=== PATIENT | female | born 1970 | race Caucasian/White ===

== ENCOUNTER 2023-05-30 04:17 | Day surgery (SDC) | payer BC, SELFPAY ==
[2023-05-20 13:44] VITALS: BMI 37.8
[2023-05-30 10:17] VITALS: BP 132/93; PULSE 98; RESP 16; TEMP 36.2; O2SAT 98; BMI 38.2
[2023-05-30] MEDS: LACTATED RINGERS 1,000 ML 150 ML IV CONT (10:31)
--- NOTE | 2023-05-30 10:54 | P.HP_ITS ---
History of Present Illness History of Present Illness Consent: Risks, benefits, and alternatives have been discussed and questions answered. Patient agrees to proceed with procedure. Chief complaint: neoplasm screening Narrative: Belinda Thurston is a 52 year old female Presents for screening colonoscopy. Patient reports her current weight appetite and bowel movements are normal. Patient denies abdominal pain. She has had no bleeding. Patient gives a histor y that she was found to have diverticulosis in the past. Apparently has been treated for possible diverticulitis. Is unsure if this was confirmed in the past. She has no recent change in bowel habits. She denies abdominal pain has had no recent abdominal pain. Review of Systems Review of Systems: Review of systems noncontributory. [facility] Social History Social History Living arrangements: with family Meds Home Medications and Allergies Home Medications Medication Instructions Recorded Confirmed Type No Home Medications 05/30/23 05/30/23 History Allergies Allergy/AdvReac Type Severity Reaction Status Date / Time No Known Allergies Allergy Verified 05/30/23 10:16 Vital Signs Vital Signs - 24 hr 05/30/23 10:17 Temperature 97.1 F L Pulse Rate 98 Respiratory Rate 16 Blood Pressure 132/93 H Pulse Oximetry 98 Oxygen Delivery Room Air Exam Narrative: Physical exam reveals patient to be alert. Vital signs stable. HEENT exam is unremarkable. Patient is anicteric. Lungs are clear to auscultation and percussion. Heart is without murmur or extra sounds. Abdomen bowel sounds are present soft nontender with no organomegaly. Digital external rectal exam is normal. Assessment and Plan Assessment and plan (1) Encounter for screening colonoscopy: Code(s): Z12.11 - Encounter for screening for malignant neoplasm of colon Status: Acute Assessment and Plan: Patient presents today for screening colonoscopy. Patient appears to be at average risk for colon polyps. Further recommendations may be given after endoscopy.
--- NOTE | 2023-05-30 11:08 | P.PNAN_ITS ---
Anes - Initial Pre Proc Eval Procedure: Operation Date: 05/30/23 11:30 Proposed Procedures p Screening Colonoscopy - Perez Flannery MD Date/Time: 05/30/23 11:08 Surgeon: Perez Flannery MD Pre Op Diagnosis: neoplasm screening Patient Data Age: 52 Gender: F Height: 1.63 m Weight: 101 kg Last Vital Signs Temp 97.1 F L 05/30/23 10:17 Pulse 98 05/30/23 10:17 Resp 16 05/30/23 10:17 BP 132/93 H 05/30/23 10:17 Pulse Ox 98 05/30/23 10:17 O2 Del Method Room Air 05/30/23 10:17 Allergies Allergy/AdvReac Type Severity Reaction Status Date / Time No Known Allergies Allergy Verified 05/30/23 10:16 Home Medications Medication Instructions Recorded Confirmed Type No Home Medications 05/30/23 05/30/23 History Patient hx anesthesia problems: none Family hx anesthesia problems: none Results Review: All pre-operative results and documents have been reviewed as part of the pre- operative evaluation. PMF Social History Social History Living arrangements: with family Anes - Eval Final PreProcedure Day of Procedure 05/30/23 11:08 Patient weight: obese Heart: regular rate and rhythm Lungs: clear to auscultation Airway: Mallampati scale class II Neurological: alert and oriented Last oral intake: >/= 8 hours ASA classification: II Emergent: no Anesthetic plan: proceed Anesthesia type and monitoring: general GIVS and standard monitoring Results Review: All pre-operative results and documents have been reviewed as part of the pre- operative evaluation. Informed Consent: The patient's anesthetic plan and its attendant risks and benefits were discussed with the patient/family/POA. Questions were solicited and answers provided to the satisfaction of the patient/family/POA.
[2023-05-30 11:20] VITALS: BP 127/103; PULSE 90; RESP 21; O2SAT 100
[2023-05-30 11:30] VITALS: BP 110/73; PULSE 89; RESP 16; O2SAT 100
[2023-05-30 11:40] VITALS: BP 124/85; PULSE 78; RESP 15; O2SAT 100
== END 2023-05-30 11:51 | disposition home or self-care (01) ==
PROVIDERS: PCP Physician Assistant; Visit Provider Internal Medicine Gastroenterology
PROC: 0DJD8ZZ Inspection of Lower Intestinal Tract, Via Natural or Artificial Opening Endoscopic (ICD-10-PCS; CPT 45378; principal; 2023-05-30 11:30)
DX: Z12.11 Encounter for screening for malignant neoplasm of colon (principal); K64.8 Other hemorrhoids; K57.30 Diverticulosis of large intestine without perforation or abscess without bleeding; E66.9 Obesity, unspecified; Z68.38 Body mass index [BMI] 38.0-38.9, adult
CPT/HCPCS: 45378; J2704; J7120